=== PATIENT | male | born 1960 | race Hispanic/Latino ===

== ENCOUNTER 2017-10-13 19:04 | Inpatient (IN) | payer BC ==
[2017-10-13 19:57] LABS: Basophils % (Auto) 0.5 % (0.0-1.8); Eosinophils % (Auto) 0.2 % (0.0-4.3); Mean Corpuscular HGB Conc 33 % (32-34); Mean Corpuscular Hemoglobin 32 pg (28-32); Mean Corpuscular Volume 96 fl (84-94); Red Blood Count 4.99 M/mm3 (3.65-5.03); Red Cell Distribution Width 13.8 % (13.2-15.2); White Blood Count 12.8 K/mm3 (4.5-11.0)
[2017-10-13 20:27] LABS: Alanine Aminotransferase 46 units/L (7-56); Alkaline Phosphatase 74 units/L (35-129); Anion Gap 24 mmol/L; BUN/Creatinine Ratio 19; Blood Urea Nitrogen 15 mg/dL (9-20); Calcium 8.9 mg/dL (8.4-10.2); Carbon Dioxide 19 mmol/L (22-30); Chloride 99.9 mmol/L (98-107); Glucose 152 mg/dL (75-100); Lipase 19 units/L (13-60); Sodium 139 mmol/L (137-145)
[2017-10-13 20:30] LABS: Platelet Count 85 K/mm3 (140-440)
[2017-10-13 21:12] LABS: Albumin/Globulin Ratio 1.3 %
[2017-10-13 21:40] LABS: Bilirubin,Urine NEG (Negative); Blood,Urine NEG (Negative); Ketones,Urine TR mg/dL (Negative); Leukocyte Esterase,Urine NEG (Negative); Mucus,Urine 2+ /HPF; Nitrite,Urine NEG (Negative); Protein,Urine <15 mg/dL mg/dL (Negative)
[2017-10-14] MEDS ORDERED: TORADOL IV ONE (08:17)
[2017-10-14] MEDS ORDERED: ZOFRAN IV ONE (08:17)
[2017-10-14] MEDS ORDERED: NACL 0.9% 1000 ML 1,000 ML IV ONE (08:17)
--- NOTE | 2017-10-14 10:44 | Cat Scan Report ---
FINAL REPORT EXAM: CT ABDOMEN PELVIS W CON HISTORY: llq pain, hx of diverculitis with resection TECHNIQUE: CT abdomen and pelvis performed. Images extend from diaphragm to pubic symphysis. Images were obtained after the administration of IV contrast. No oral contrast was administered. Coronal and sagittal reformatted images were obtained. PRIORS: None. FINDINGS: There is some dependent atelectasis at the lung bases. There is elevation of the left hemidiaphragm. There is fatty infiltration of the liver. The visualized liver, spleen, pancreas, adrenal glands and kidneys demonstrate no significant abnormalities. There is no abdominal aortic aneurysm. There is some wall thickening involving mid small bowel loops which is worrisome for enteritis. Bowel loops proximal to this are fluid containing and mildly dilated. This could reflect associated obstruction versus ileus. The appendix is normal. There is diverticulosis throughout the colon. There is no acute diverticulitis seen. There is no free intraperitoneal air. There are no abnormal fluid collections seen. The bladder is unremarkable. There is no abnormal pelvic mass or fluid collections seen. IMPRESSION: Findings are concerning for enteritis involving mid bowel. Fluid containing mildly dilated proximal loops could reflect associated ileus or obstruction. Diverticulosis. No acute diverticulitis seen. Fatty liver.
--- NOTE | 2017-10-14 11:53 | Emergency Department Report ---
ED Abdominal Pain HPI - General Chief Complaint: Abdominal Pain Stated Complaint: CHEST PAIN Time Seen by Provider: 10/14/17 08:07 Source: patient Mode of arrival: Ambulatory Limitations: No Limitations - History of Present Illness Initial Comments: 57-year-old male with a past medical history hypertension and diverticulitis with postsurgical with partial intestine removal 3 years ago presents to the hospital complains of lower quadrant abdominal pain 3 days ago. Pain is intermittent and starts in the left lower quadrant and radiates up to the chest. Patient having a lot of flatus and belching without improvement. Pain is worse with palpation. Decreased by mouth intake reported and patient has not eaten in several days. Patient saw PMD Dr. Cleveland who prescribed Flagyl, promethazine, [place], and Cipro. Patient took first dose of medications yesterday. Patient continued to have pain so came to the ED for CT scan to rule out return of diverticulitis. Patient denies known fever. Last vomiting episode was 2 days ago. Patient states has some some similar symptoms in the past with intestinal blockage to 3 years ago. One episode of loose stools yesterday. GI doctor: Dr. Kaplan Severity scale (0 -10): 4 - Related Data Allergies Allergy/AdvReac Type Severity Reaction Status Date / Time No Known Allergies Allergy Verified 10/13/17 19:21 ED Review of Systems ROS: Stated complaint: CHEST PAIN Other details as noted in HPI Comment: All other systems reviewed and negative Other: Constitutional: No fevers chills or weight loss Eyes: No eye pain visual changes or discharge ENT: No ear pain or throat pain Neck: Denies pain Respiratory: Denies cough wheezing shortness of breath Cardiovascular: Denies chest pain, palpitations, syncope GI: As per HPI : Denies dysuria Musculoskeletal: Denies back pain Skin: Denies rash, lesions, erythema Neurologic: Denies headache, numbness, weakness Psychiatric: Denies suicidal ideation, hallucinations ED Past Medical Hx - Past Medical History Previous Medical History?: Yes Hx Hypertension: Yes Additional medical history: diverticulitis - Surgical History Past Surgical History?: Yes - Social History Smoking Status: Former Smoker Substance Use Type: None ED Physical Exam - General Limitations: No Limitations - Other Other exam information: General: No limitations, patient is alert in no acute distress Head exam: Atraumatic, normocephalic Eyes exam: Normal appearance ENT: Moist mucous membrane, normal oropharynx Neck exam: Normal inspection, full range of motion, no meningismus nontender Respiratory exam: Clear to auscultation bilateral, no wheezes, rales, crackles Cardiovascular: Normal rate and rhythm, normal heart sounds Abdomen: Soft, nondistended, left lower quadrant tenderness, with normal bowel sounds, no rebound, or guarding Extremity: Full range of motion normal inspection no deformity Back: Normal Inspection, full range of motion, no tenderness Neurologic: Alert, oriented x3, cranial nerves intact, no motor or sensory deficit Psychiatric: normal affect, normal mood Skin: Warm, dry, intact ED Course Vital Signs 10/13/17 10/14/17 10/14/17 19:22 04:06 07:26 Temperature 97.8 F 98.6 F Pulse Rate 107 H 88 86 Respiratory 16 20 19 Rate Blood Pressure 124/79 124/79 Blood Pressure 116/92 [Right] O2 Sat by Pulse 95 95 94 Oximetry 10/14/17 10/14/17 10/14/17 08:50 10:35 10:39 Temperature 98.1 F Pulse Rate 84 Respiratory 20 20 20 Rate Blood Pressure Blood Pressure 125/68 [Right] O2 Sat by Pulse 95 95 Oximetry - Reevaluation(s) Reevaluation #1: 10/14/17 12:14 Patient received Toradol, normocephaly, and Zofran with improvement in symptoms. ED Medical Decision Making - Lab Data Result diagrams: 10/13/17 19:37 10/13/17 19:37 Lab Results 10/13/17 10/13/17 10/13/17 Range/Units 19:37 19:37 21:21 WBC 12.8 H (4.5-11.0) K/mm3 RBC 4.99 (3.65-5.03) M/mm3 Hgb 16.0 H (11.8-15.2) gm/dl Hct 48.0 H (35.5-45.6) % MCV 96 H (84-94) fl MCH 32 (28-32) pg MCHC 33 (32-34) % RDW 13.8 (13.2-15.2) % Plt Count 85 L (140-440) K/mm3 Lymph % (Auto) 14.9 (13.4-35.0) % [place] % (Auto) 7.5 H (0.0-7.3) % Eos % (Auto) 0.2 (0.0-4.3) % Baso % (Auto) 0.5 (0.0-1.8) % Lymph # 1.9 (1.2-5.4) K/mm3 [place] # 1.0 H (0.0-0.8) K/mm3 Eos # 0.0 (0.0-0.4) K/mm3 Baso # 0.1 (0.0-0.1) K/mm3 Seg Neutrophils % 76.9 H (40.0-70.0) % Seg Neutrophils # 9.8 H (1.8-7.7) K/mm3 Sodium 139 (137-145) mmol/L Potassium 4.0 (3.6-5.0) mmol/L Chloride 99.9 (98-107) mmol/L Carbon Dioxide 19 L (22-30) mmol/L Anion Gap 24 mmol/L BUN 15 (9-20) mg/dL Creatinine 0.8 (0.8-1.5) mg/dL Estimated GFR > 60 ml/min BUN/Creatinine Ratio 19 % Glucose 152 H (75-100) mg/dL Calcium 8.9 (8.4-10.2) mg/dL Total Bilirubin 1.20 (0.1-1.2) mg/dL AST 35 (5-40) units/L ALT 46 (7-56) units/L Alkaline Phosphatase 74 (35-129) units/L Troponin T (0.00-0.029) ng/mL Total Protein 7.0 (6.3-8.2) g/dL Albumin 4.0 (3.9-5) g/dL Albumin/Globulin Ratio 1.3 % Lipase 19 (13-60) units/L Urine Color Sharri (Yellow) Urine Turbidity Clear (Clear) Urine pH 5.0 (5.0-7.0) Ur Specific [place] 1.027 (1.003-1.030) Urine Protein <15 mg/dl (Negative) mg/dL Urine Glucose (UA) Neg (Negative) mg/dL Urine Ketones Tr (Negative) mg/dL Urine Blood Neg (Negative) Urine Nitrite Neg (Negative) Urine Bilirubin Neg (Negative) Urine Urobilinogen 2.0 (<2.0) mg/dL Ur Leukocyte Esterase Neg (Negative) Urine WBC (Auto) 1.0 (0.0-6.0) /HPF Urine RBC (Auto) 2.0 (0.0-6.0) /HPF Urine Mucus 2+ /HPF 10/14/17 Range/Units 08:26 WBC (4.5-11.0) K/mm3 RBC (3.65-5.03) M/mm3 Hgb (11.8-15.2) gm/dl Hct (35.5-45.6) % MCV (84-94) fl MCH (28-32) pg MCHC (32-34) % RDW (13.2-15.2) % Plt Count (140-440) K/mm3 Lymph % (Auto) (13.4-35.0) % [place] % (Auto) (0.0-7.3) % Eos % (Auto) (0.0-4.3) % Baso % (Auto) (0.0-1.8) % Lymph # (1.2-5.4) K/mm3 [place] # (0.0-0.8) K/mm3 Eos # (0.0-0.4) K/mm3 Baso # (0.0-0.1) K/mm3 Seg Neutrophils % (40.0-70.0) % Seg Neutrophils # (1.8-7.7) K/mm3 Sodium (137-145) mmol/L Potassium (3.6-5.0) mmol/L Chloride (98-107) mmol/L Carbon Dioxide (22-30) mmol/L Anion Gap mmol/L BUN (9-20) mg/dL Creatinine (0.8-1.5) mg/dL Estimated GFR ml/min BUN/Creatinine Ratio % Glucose (75-100) mg/dL Calcium (8.4-10.2) mg/dL Total Bilirubin (0.1-1.2) mg/dL AST (5-40) units/L ALT (7-56) units/L Alkaline Phosphatase (35-129) units/L Troponin T < 0.010 (0.00-0.029) ng/mL Total Protein (6.3-8.2) g/dL Albumin (3.9-5) g/dL Albumin/Globulin Ratio % Lipase (13-60) units/L Urine Color (Yellow) Urine Turbidity (Clear) Urine pH (5.0-7.0) Ur Specific [place] (1.003-1.030) Urine Protein (Negative) mg/dL Urine Glucose (UA) (Negative) mg/dL Urine Ketones (Negative) mg/dL Urine Blood (Negative) Urine Nitrite (Negative) Urine Bilirubin (Negative) Urine Urobilinogen (<2.0) mg/dL Ur Leukocyte Esterase (Negative) Urine WBC (Auto) (0.0-6.0) /HPF Urine RBC (Auto) (0.0-6.0) /HPF Urine Mucus /HPF - EKG Data -: EKG Interpreted by Me (nsr ) EKG shows normal: sinus rhythm, axis (48), QRS complexes (90), ST-T waves (no stemi) Rate: tachycardia (102) - EKG Data When compared to previous EKG there are: previous EKG unavailable - Radiology Data Radiology results: report reviewed ct abd pelvis w/IV contrast: findings concerning for enteritis involving mid bowel pair fluid containing mildly dilated proximal loops could reflect associated ileus or obstruction. Diverticulosis without acute diverticulitis. - Medical Decision Making Plans admit patient to hospital for further observation given ileus and by mouth intolerance. Patient also has thrombocytopenia without previous value for comparison. Surgeon religion professor Dr. Turner was consulted and will see patient. Patient continues to have flatus therefore a likely complete small bowel obstruction. Patient states with previous bowel obstruction he could not pass gas. Critical Care Time: No Critical care attestation.: If time is entered above; I have spent that time in minutes in the direct care of this critically ill patient, excluding procedure time. ED Disposition Clinical Impression: LLQ pain, Ileus, Thrombocytopenia, Dehydration Disposition: -09 OP ADMIT IP TO THIS HOSP Is pt being admited?: Yes Condition: Stable Time of Disposition: 12:07 (Dr Herrera/hosp)
--- NOTE | 2017-10-14 13:53 | History and Physical Report ---
History of Present Illness History of present illness: 57 YO Male with HTN, Diverticulitis presents to ED for evaluation. Pt states that he has experienced abdominal pain for the past 3 days. Pain is 4-6/10, intermittent, worse with palpation, starts in the left lower quadrant and radiates up to the epigastric region. Patient acknowledges flatus and belching without improvement in symptoms. Pt seen by PCP and give oral antibiotics and pain medication which has not improved symptoms. Pt denies fever, chills, CP, Palpitation, Syncope, BRBPR, productive cough, ingestion of food/water from new or different sources, skin rash, or recent ill contacts. Pt seen and evaluated in ED and underwent CT abdomen/pelvis which revealed colitis, Patient also found to have evidence of sepsis. Pt initiated on sepsis protocol. Past History Past Medical History: hypertension, other (Divereticulitis) Past Surgical History: bowel surgery Social history: Family history: hypertension Medications and Allergies Allergies Allergy/AdvReac Type Severity Reaction Status Date / Time No Known Allergies Allergy Verified 10/13/17 19:21 Home Medications Medication Instructions Recorded Confirmed Last Taken Type Ciprofloxacin HCl [Cipro] 500 mg PO BID 10/14/17 10/14/17 10/13/17 History Gabapentin [Neurontin] 300 mg PO QDAY 10/14/17 10/14/17 Unknown History HYDROcodone/APAP 7.5-325 [[place] 1 each PO TID PRN 10/14/17 10/14/17 10/13/17 History 7.5/325] Lisinopril [Prinivil] 5 mg PO QDAY 10/14/17 10/14/17 Unknown History Pantoprazole [Protonix] 40 mg PO QDAY 10/14/17 10/14/17 Unknown History Promethazine [Phenergan TAB] 25 mg PO Q8HR PRN 10/14/17 10/14/17 10/13/17 History Tamsulosin [Flomax] 0.4 mg PO QDAY 10/14/17 10/14/17 Unknown History metroNIDAZOLE [Metronidazole] 500 mg PO BID 10/14/17 10/14/17 10/13/17 History Review of Systems Constitutional: no weight loss, no weight gain, no fever, no chills Ears, nose, mouth and throat: no ear pain, no ear discharge, no tinnitis, no decreased hearing, no nose pain, no nasal congestion Cardiovascular: no chest pain, no orthopnea, no palpitations, no rapid/ irregular heart beat, no edema Respiratory: no cough, no cough with sputum, no excessive sputum, no hemoptysis , no shortness of breath Gastrointestinal: abdominal pain Genitourinary Male: no dysuria, no hematuria, no flank pain, no discharge, no urinary frequency Rectal: no pain, no incontinence, no bleeding Musculoskeletal: no neck stiffness, no neck pain, no shooting arm pain, no arm numbness/tingling Integumentary: no rash, no pruritis, no redness, no sores, no wounds Neurological: no head injury, no transient paralysis, no paralysis, no weakness , no parathesias Psychiatric: no anxiety, no memory loss, no change in sleep habits, no sleep disturbances, no insomnia, no hypersomnia, no change in appetite Endocrine: no cold intolerance, no heat intolerance, no polyphagia, no excessive thirst, no polydipsia Hematologic/Lymphatic: no easy bruising, no easy bleeding Allergic/Immunologic: no urticaria, no allergic rhinitis, no wheezing Exam - Constitutional Vitals: Temp Pulse Resp BP Pulse Ox 98.1 F 84 20 125/68 95 10/14/17 10:35 10/14/17 10:35 10/14/17 10:39 10/14/17 10:35 10/14/17 10:39 General appearance: Present: mild distress - EENT Eyes: Present: PERRL ENT: hearing intact, clear oral mucosa - Neck Neck: Present: supple, normal ROM - Respiratory Respiratory effort: normal Respiratory: bilateral: CTA - Cardiovascular Heart Sounds: Present: S1 & S2. Absent: rub, click - Extremities Extremities: pulses symmetrical, No edema Peripheral Pulses: within normal limits - Abdominal General gastrointestinal: Present: soft, tender, non-distended, normal bowel sounds Localized gastrointestinal: tender: LLQ, guarding: LLQ Male genitourinary: Present: normal - Integumentary Integumentary: Present: clear, warm, dry - Musculoskeletal Musculoskeletal: gait normal, strength equal bilaterally - Psychiatric Psychiatric: appropriate mood/affect, intact judgment & insight - Neurologic Neurologic: CNII-XII intact, moves all extremities Results - Labs CBC & Chem 7: 10/13/17 19:37 10/13/17 19:37 Labs: Abnormal lab results 10/13/17 10/13/17 Range/Units 19:37 19:37 WBC 12.8 H (4.5-11.0) K/mm3 Hgb 16.0 H (11.8-15.2) gm/dl Hct 48.0 H (35.5-45.6) % MCV 96 H (84-94) fl Plt Count 85 L (140-440) K/mm3 [place] % (Auto) 7.5 H (0.0-7.3) % [place] # 1.0 H (0.0-0.8) K/mm3 Seg Neutrophils % 76.9 H (40.0-70.0) % Seg Neutrophils # 9.8 H (1.8-7.7) K/mm3 Carbon Dioxide 19 L (22-30) mmol/L Glucose 152 H (75-100) mg/dL Assessment and Plan - Patient Problems (1) Sepsis Current Visit: Yes Status: Acute Qualifiers: Sepsis type: sepsis due to unspecified organism Qualified Code(s): A41.9 - Sepsis, unspecified organism Plan to address problem: IV abx, IVF, monitor UOP q shift, serial lactic acid level, blood cultures, repeat cbc. (2) Colitis Current Visit: Yes Status: Acute Plan to address problem: CT Abdomen/Pelvis, IV abx, serial abdominal exam, Surgery consulted, serial abdominal exam. , GI consulted as per surgery request (3) HTN (hypertension) Current Visit: Yes Status: Acute Plan to address problem: monitor bp q shift, IV hydralazine for systolic above 155. (4) DVT prophylaxis Current Visit: Yes Status: Acute
[2017-10-14] MEDS ORDERED: PROVENTIL IH PRN (13:56)
[2017-10-14] MEDS ORDERED: MILK OF MAGNESIA PO PRN (13:56)
[2017-10-14] MEDS ORDERED: DULCOLAX PR PRN (13:56)
[2017-10-14] MEDS ORDERED: ZOFRAN IV PRN (13:56)
[2017-10-14] MEDS ORDERED: TYLENOL PO PRN (13:56)
[2017-10-14] MEDS ORDERED: MORPHINE IV PRN (13:56)
[2017-10-14] MEDS ORDERED: PHENERGAN PO PRN (13:59)
[2017-10-14] MEDS ORDERED: NORCO 7.5/325 PO PRN (13:59)
[2017-10-14] MEDS ORDERED: D5/0.45NS 1,000 ML IV SCH (14:00)
[2017-10-14] MEDS ORDERED: FLAGYL PO SCH (15:30)
[2017-10-14] MEDS ORDERED: VANCOMYCIN VIAL IV ONE (17:00)
[2017-10-14] MEDS ORDERED: VANCOMYCIN PHARMACY TO DOSE IV SCH (17:00)
[2017-10-14] MEDS: NACL 0.9% 1000 ML IV ONE ×2 (17:43→19:38)
--- NOTE | 2017-10-14 18:25 | Gastroenterology Consultation ---
History of Present Illness - Reason for Consult Consult date: 10/14/17 Abdominal Pain Requesting physician: JOAO SEARS - History of Present Illness The patient is a 57 yo male referred by his PCP to the ER for worsening abdominal pain. He does have a hx of diverticulitis with sigmoid resection (3 years ago, [facility]) but this pain was more diffuse and associated with an abdominal distention, nausea, and obstipation. He denies F/C but had an elevated WBC on admit. He was started on abx by his PCP yesterday, but admits he only took 1 dose of each (cipro and flagyl). He has no CP or SOB. He has no other abdominal surgeries. He has no hx of GI obstruction from adhesions. Today in the ER, he is passing copious flatus, says his abdomen is markedly better/less pain, and is tolerating clear liquids without emesis. There is no blood in the stools. Past History Past Medical History: hypertension, other (Divereticulitis) Past Surgical History: bowel surgery (Diverticulitis/sigmoid resection at [facility] 2013) Social history: Family history: hypertension Medications and Allergies Allergies Allergy/AdvReac Type Severity Reaction Status Date / Time No Known Allergies Allergy Verified 10/13/17 19:21 Home Medications Medication Instructions Recorded Confirmed Last Taken Type Ciprofloxacin HCl [Cipro] 500 mg PO BID 10/14/17 10/14/17 10/13/17 History Gabapentin [Neurontin] 300 mg PO QDAY 10/14/17 10/14/17 Unknown History HYDROcodone/APAP 7.5-325 [[place] 1 each PO TID PRN 10/14/17 10/14/17 10/13/17 History 7.5/325] Lisinopril [Prinivil] 5 mg PO QDAY 10/14/17 10/14/17 Unknown History Pantoprazole [Protonix] 40 mg PO QDAY 10/14/17 10/14/17 Unknown History Promethazine [Phenergan TAB] 25 mg PO Q8HR PRN 10/14/17 10/14/17 10/13/17 History Tamsulosin [Flomax] 0.4 mg PO QDAY 10/14/17 10/14/17 Unknown History metroNIDAZOLE [Metronidazole] 500 mg PO BID 10/14/17 10/14/17 10/13/17 History Active Meds: Active Medications Acetaminophen (Tylenol) 650 mg PO Q4H PRN PRN Reason: Pain MILD(1-3)/Fever >100.5/[place] Acetaminophen/Hydrocodone Bitart ([place] 7.5/325) 1 each PO TID PRN PRN Reason: Pain Albuterol (Proventil) 2.5 mg IH Q4HRT PRN PRN Reason: Shortness Of Breath Bisacodyl (Dulcolax) 10 mg [place] QDAY PRN PRN Reason: Constipation unrelieved by MOM Famotidine (Pepcid) 20 mg PO BID [facility] Gabapentin (Neurontin) 300 mg PO QDAY [facility] Dextrose/Sodium Chloride (D5/0.45ns) 1,000 mls @ 42 mls/hr IV DIRECT PRICILLA Metronidazole (Flagyl 500 Mg/100 Ml) 500 mg in 100 mls @ 100 mls/hr IV Q8HR [facility] Piperacillin Sod/Tazobactam Sod (Zosyn/Ns 4.5gm/100ml) 4.5 gm in 100 mls @ 200 mls/hr IV Q8HR PRICILLA PRN Reason: Protocol Lisinopril (Zestril) 5 mg PO QDAY [facility] Magnesium Hydroxide (Milk Of Magnesia) 30 ml PO Q4H PRN PRN Reason: Constipation Metronidazole (Flagyl) 500 mg PO BID [facility] Last Admin: 10/14/17 15:03 Dose: 500 mg Morphine Sulfate (Morphine) 2 mg IV Q4H PRN PRN Reason: Pain, Moderate (4-6) Ondansetron HCl (Zofran) 4 mg IV Q8H PRN PRN Reason: N/V unrelieved by Reglan Promethazine HCl (Phenergan) 25 mg PO Q8HR PRN PRN Reason: Nausea Tamsulosin HCl (Flomax) 0.4 mg PO QDAY [facility] Vancomycin HCl (Vancomycin Pharmacy To Dose) 1 each IV PKCONSULT PRICILLA PRN Reason: Protocol Vancomycin HCl (Vancomycin Vial) 2,000 mg 20 mg/kg (2000 mg) IV ONCE ONE PRN Reason: Protocol Stop: 10/14/17 17:01 Review of Systems - Review of Systems All systems: negative (as noted in the HPI) Exam - Constitutional Vital Signs: Temp Pulse Resp BP Pulse Ox 98.1 F 84 20 125/68 95 10/14/17 10:35 10/14/17 10:35 10/14/17 10:39 10/14/17 10:35 10/14/17 10:39 General appearance: no acute distress - EENT Eyes: PERRL, EOM intact ENT: hearing intact, clear oral mucosa, dentition normal, no thrush - Neck Neck: supple, normal ROM - Respiratory Respiratory effort: normal Respiratory: bilateral: CTA - Cardiovascular Rhythm: regular Heart Sounds: Present: S1 & S2 Extremities: no ischemia, No edema - Gastrointestinal General gastrointestinal: Present: soft, non-tender, distended (Very mild with normal BS and no guarding) - Integumentary Integumentary: Present: clear, warm, dry - Neurologic Neurological: alert and oriented x3 - Labs CBC & Chem 7: 10/13/17 19:37 10/13/17 19:37 Lab Results: Laboratory Results - last 24 hr 10/13/17 10/13/17 10/13/17 19:37 19:37 21:21 WBC 12.8 H RBC 4.99 Hgb 16.0 H Hct 48.0 H MCV 96 H MCH 32 MCHC 33 RDW 13.8 Plt Count 85 L Lymph % (Auto) 14.9 [place] % (Auto) 7.5 H Eos % (Auto) 0.2 Baso % (Auto) 0.5 Lymph # 1.9 [place] # 1.0 H Eos # 0.0 Baso # 0.1 Seg Neutrophils % 76.9 H Seg Neutrophils # 9.8 H Sodium 139 Potassium 4.0 Chloride 99.9 Carbon Dioxide 19 L Anion Gap 24 BUN 15 Creatinine 0.8 Estimated GFR > 60 BUN/Creatinine Ratio 19 Glucose 152 H Calcium 8.9 Total Bilirubin 1.20 AST 35 ALT 46 Alkaline Phosphatase 74 Troponin T Total Protein 7.0 Albumin 4.0 Albumin/Globulin Ratio 1.3 Lipase 19 Urine Color Sharri Urine Turbidity Clear Urine pH 5.0 Ur Specific [place] 1.027 Urine Protein <15 mg/dl Urine Glucose (UA) Neg Urine Ketones Tr Urine Blood Neg Urine Nitrite Neg Urine Bilirubin Neg Urine Urobilinogen 2.0 Ur Leukocyte Esterase Neg Urine WBC (Auto) 1.0 Urine RBC (Auto) 2.0 Urine Mucus 2+ 10/14/17 08:26 WBC RBC Hgb Hct MCV MCH MCHC RDW Plt Count Lymph % (Auto) [place] % (Auto) Eos % (Auto) Baso % (Auto) Lymph # [place] # Eos # Baso # Seg Neutrophils % Seg Neutrophils # Sodium Potassium Chloride Carbon Dioxide Anion Gap BUN Creatinine Estimated GFR BUN/Creatinine Ratio Glucose Calcium Total Bilirubin AST ALT Alkaline Phosphatase Troponin T < 0.010 Total Protein Albumin Albumin/Globulin Ratio Lipase Urine Color Urine Turbidity Urine pH Ur Specific [place] Urine Protein Urine Glucose (UA) Urine Ketones Urine Blood Urine Nitrite Urine Bilirubin Urine Urobilinogen Ur Leukocyte Esterase Urine WBC (Auto) Urine RBC (Auto) Urine Mucus Assessment and Plan - Patient Problems (1) Abnormal abdominal CT scan Current Visit: Yes Status: Acute Plan to address problem: - Ileus versus partial SBO (resolving clinically). - Most likely dx at this age would be infectious, but could be partial SBO from prior bowel surgery. - Since the patient is clinically much better with abx, I would continue for 5 days (cipro only for small bowel enteritis). - Will advance to full liquids, and OK to d/c tomorrow if continues current clinical improvement.
[2017-10-14] MEDS ORDERED: VANCOMYCIN 1,500 MG in NACL 0.9% 500 ML 500 ML IV SCH (18:50)
[2017-10-14] MEDS ORDERED: NACL 0.9% 1000 ML 1,000 ML ONE (19:35)
[2017-10-14 20:46] LABS: Bilirubin,Urine NEG (Negative); Blood,Urine NEG (Negative); Ketones,Urine 20 mg/dL (Negative); Leukocyte Esterase,Urine NEG (Negative); Mucus,Urine FEW /HPF; Nitrite,Urine NEG (Negative); Protein,Urine <15 mg/dL mg/dL (Negative)
[2017-10-14] MEDS: PEPCID PO SCH (21:32)
[2017-10-14] MEDS ORDERED: FLAGYL 500 MG/100 ML 500 MG/100 ML BAG IV SCH (22:00)
[2017-10-14] MEDS ORDERED: ZOSYN/NS 4.5GM/100ML 4.5 GM/100 ML VIAL IV SCH (22:00)
[2017-10-15] MEDS ORDERED: NACL 0.9% 1000 ML IV ONE (06:00)
--- NOTE | 2017-10-15 06:58 | Consultation ---
HISTORY OF PRESENT ILLNESS: The patient seen in the Emergency Room this morning. He came because of severe pain to the abdomen of about 2 days' duration, nausea, but no vomiting. He gives a history of surgery where he had his right colon removed, also gives a history of a ?small bowel obstruction requiring him to be in the hospital for about 3 days about one year and half ago. He was admitted by Dr. Philip because of the above, he had diverticular disease, but at this point he did not have anything. His abdomen was moderately protuberant and has severe pain. He told me that in the last 1 hour or so, his pain has gone. The patient is hungry. He had no problem with his bowel movements, although they were on the loose ____ side, however. Allergic reactions were denied. MEDICATIONS: None specific. PHYSICAL EXAMINATION: GENERAL: A well preserved, obese white male who is in no distress. He told me the pain has gone now. HEAD AND NECK: Negative. Supple. CHEST: Essentially clear. HEART: Sounds normal. ABDOMEN: Protuberant and soft to me at the present time, no tenderness, no rigidity. EXTREMITIES: Showed no edema. IMPRESSION: Abdominal pain, resolving, the etiology of which is unknown, status post colon resection for diverticular disease. I had a lengthy talk with the patient, I believe we need to have him in as per our clinical applications manager, give him some liquid slowly and IV fluids and then we will go from there. JOB# [id number] BELEN/THOMAS CARROLL
[2017-10-15 09:50] LABS: Hematocrit 39.1 % (35.5-45.6); Hemoglobin 13.7 gm/dl (11.8-15.2); Mean Corpuscular HGB Conc 35 % (32-34); Mean Corpuscular Hemoglobin 33 pg (28-32); Mean Corpuscular Volume 95 fl (84-94); Platelet Count 157 K/mm3 (140-440); Red Blood Count 4.11 M/mm3 (3.65-5.03); Red Cell Distribution Width 13.1 % (13.2-15.2); White Blood Count 5.5 K/mm3 (4.5-11.0)
[2017-10-15] MEDS: PEPCID PO SCH (09:59)
[2017-10-15] MEDS ORDERED: LEVAQUIN 500MG/100ML 500 MG/100 ML BAG IV SCH (10:00)
[2017-10-15] MEDS ORDERED: NEURONTIN PO SCH (10:00)
[2017-10-15] MEDS ORDERED: FLOMAX PO SCH (10:00)
[2017-10-15] MEDS ORDERED: ZESTRIL PO SCH (10:00)
[2017-10-15 10:05] LABS: Anion Gap 17 mmol/L; BUN/Creatinine Ratio 11; Blood Urea Nitrogen 9 mg/dL (9-20); Calcium 8.2 mg/dL (8.4-10.2); Carbon Dioxide 23 mmol/L (22-30); Chloride 102.6 mmol/L (98-107); Glucose 103 mg/dL (75-100); Potassium 3.7 mmol/L (3.6-5.0); Sodium 139 mmol/L (137-145)
[2017-10-15 10:26] LABS: Blastocytes % (Manual) 0 %
[2017-10-15 10:27] LABS: Anisocytosis 1+; Diff Status Complete; Platelet Estimate Consistent w Auto; Polychromasia Rare
[2017-10-15] MEDS ORDERED: CITRATE OF MAGNESIA PO ONE (10:43)
--- NOTE | 2017-10-15 12:18 | Discharge Summary ---
Providers - Providers Date of Admission: 10/14/17 13:56 Date of discharge: 10/15/17 Attending physician: JOAO SEARS MD 10/14/17 12:03 Consult to Physician [CONS] Urgent Consulting Provider: SEPIDEH HELTON Reason For Exam: illeus vs obstruction Place consult to:: SURGERY Notified:: y 10/14/17 16:50 Consult to Physician [CONS] Routine Consulting Provider: MATEO MAS Reason For Exam: colitis Place consult to:: GI Notified:: Y Was contact made?: Yes If yes, spoke with:: A/S RUPA Time called:: 16:50 Primary care physician: WEATHER REPORTER Hospitalization Reason for admission: entritis Condition: Stable Pertinent studies: CT abdomen and pelvis Findings are concerning for enteritis involving the mid bowel. Fluid containing mildly dilated proximal loops could reflect associated ileus or obstruction. Diverticulosis. No acute diverticulitis seen. Hospital course: 57 YO Male with HTN, Diverticulosis presents to ED for evaluation. Pt states that he has experienced abdominal pain for the past 3 days. Pain is 4-6/10, intermittent, worse with palpation, starts in the left lower quadrant and radiates up to the epigastric region. Patient acknowledges flatus and belching without improvement in symptoms. Pt seen by PCP and give oral antibiotics and pain medication which has not improved symptoms. Pt denies fever, chills, CP, Palpitation, Syncope, BRBPR, productive cough, ingestion of food/water from new or different sources, skin rash, or recent ill contacts. Pt seen and evaluated in ED and underwent CT abdomen/pelvis which revealed enteritis. Patient was admitted to the floor, and started with IV antibiotic, GI and surgery consult appreciated. Patient abdominal pain is getting better, patient had bowel movement and discharged home with 5 days of Levaquin. Patient was hemodynamically stable at time of discharge. Medications were reviewed and updated at the time of discharge. Disposition: - TO HOME OR SELFCARE Time spent for discharge: 31 minutes - Discharge Diagnoses (1) Colitis Status: Acute Core Measure Documentation - Palliative Care Palliative Care/ Comfort Measures: Not Applicable - Core Measures Any of the following diagnoses?: none Exam - Physical Exam Narrative exam: Not in cardiopulmonary distress. The patient is obese. Vital signs as documented. Head exam is unremarkable. No scleral icterus . Neck is without jugular venous distension, thyromegaly, or carotid bruits. Lungs are clear to auscultation. Cardiac exam reveals regular rate and Rhythm. First and second heart sounds normal. No murmurs, rubs or gallops. Abdominal exam reveals soft, nontender abdomen. Extremities are nonedematous and both femoral and pedal pulses are normal. BASEBALL SEWER HAND: Alert and oriented 3. No focal weakness. - Constitutional Vitals: Temp Pulse Resp BP Pulse Ox 98.0 F 61 20 118/58 95 10/15/17 07:58 10/15/17 07:58 10/15/17 07:58 10/15/17 07:58 10/15/17 07:58 Plan Activity: no restrictions Weight Bearing Status: Full Weight Bearing Diet: low fat, low cholesterol, low salt, advance as tolerated Follow up with: PRIMARY CARE, [Primary Care Provider] - 3-5 Days MATEO MAS MD [Staff Physician] - 7 Days Prescriptions: HYDROcodone/APAP 7.5-325 [[place] 7.5-325 mg TAB] 1 each PO TID PRN #12 tablet PRN Reason: Pain Levofloxacin [Levaquin TAB] 500 mg PO QDAY #5 tablet
--- NOTE | 2017-10-15 12:24 | Progress Note ---
Subjective Patient Reports: Positive: feels better, flatus, no bowel movement Narrative: Talked to Pt doing fine lots of flatus , No BM , feels the urge however , seen by Dr Cabello home today , I stressed on the Pt the need for colonoscopy , could be done , advised him to pursue it with GI ,and to call me any time , Objective Vital Signs - 12hr 10/15/17 07:58 Temperature 98.0 F Pulse Rate 61 Respiratory 20 Rate Blood Pressure 118/58 O2 Sat by Pulse 95 Oximetry - Labs 10/15/17 09:17 10/15/17 09:23 Diabetes panel 10/15/17 Range/Units 09:23 Sodium 139 (137-145) mmol/L Potassium 3.7 (3.6-5.0) mmol/L Chloride 102.6 (98-107) mmol/L Carbon Dioxide 23 (22-30) mmol/L BUN 9 (9-20) mg/dL Creatinine 0.8 (0.8-1.5) mg/dL Glucose 103 H (75-100) mg/dL Calcium 8.2 L (8.4-10.2) mg/dL Calcium panel 10/15/17 Range/Units 09:23 Calcium 8.2 L (8.4-10.2) mg/dL Pituitary panel 10/15/17 Range/Units 09:23 Sodium 139 (137-145) mmol/L Potassium 3.7 (3.6-5.0) mmol/L Chloride 102.6 (98-107) mmol/L Carbon Dioxide 23 (22-30) mmol/L BUN 9 (9-20) mg/dL Creatinine 0.8 (0.8-1.5) mg/dL Glucose 103 H (75-100) mg/dL Calcium 8.2 L (8.4-10.2) mg/dL Adrenal panel 10/15/17 Range/Units 09:23 Sodium 139 (137-145) mmol/L Potassium 3.7 (3.6-5.0) mmol/L Chloride 102.6 (98-107) mmol/L Carbon Dioxide 23 (22-30) mmol/L BUN 9 (9-20) mg/dL Creatinine 0.8 (0.8-1.5) mg/dL Glucose 103 H (75-100) mg/dL Calcium 8.2 L (8.4-10.2) mg/dL
--- NOTE | 2017-10-15 15:31 | Gastroenterology Progress Note ---
Assessment and Plan - Patient Problems (1) Enteritis Current Visit: Yes Status: Acute Plan to address problem: Resolving enteritis. Stable to go home today GI gary. Office f/u in a few weeks. He has a FH of colon cancer, his mother, and was advised to have an outpatient colonoscopy. (2) Abnormal abdominal CT scan Current Visit: Yes Status: Acute Subjective Date of service: 10/15/17 Principal diagnosis: Enteritis Interval history: The patient reports feeling much better. He is passing stool and flatus. No bleeding. Objective - Constitutional Vitals: Temp Pulse Resp BP Pulse Ox 98.0 F 61 20 118/58 95 10/15/17 07:58 10/15/17 07:58 10/15/17 07:58 10/15/17 07:58 10/15/17 07:58 General appearance: no acute distress - EENT ENT: hearing intact - Neck Neck: supple, normal ROM - Respiratory Respiratory effort: normal Respiratory: bilateral: CTA - Cardiovascular Rhythm: regular - Gastrointestinal General gastrointestinal: Present: soft, non-tender, non-distended, normal bowel sounds, other (obese) - Neurologic Neurological: alert and oriented x3 - Labs CBC & Chem 7: 10/15/17 09:17 10/15/17 09:23 Labs: Laboratory Results - last 24 hr 10/14/17 10/14/17 10/14/17 19:23 20:23 23:14 WBC RBC Hgb Hct MCV MCH MCHC RDW Plt Count Add Manual Diff Total Counted Seg Neuts % (Manual) Band Neutrophils % Lymphocytes % (Manual) Reactive Lymphs % (Man) Monocytes % (Manual) Eosinophils % (Manual) Basophils % (Manual) Metamyelocytes % Myelocytes % Promyelocytes % Blast Cells % Nucleated RBC % Seg Neutrophils # Man Band Neutrophils # Lymphocytes # (Manual) Abs React Lymphs (Man) Monocytes # (Manual) Eosinophils # (Manual) Basophils # (Manual) Metamyelocytes # Myelocytes # Promyelocytes # Blast Cells # WBC Morphology Hypersegmented Neuts Hyposegmented Neuts Hypogranular Neuts Smudge Cells Toxic Granulation Toxic Vacuolation Dohle Bodies Pelger-Huet Anomaly Nazia Rods Platelet Estimate Clumped Platelets Plt Clumps, EDTA Large Platelets Giant Platelets Platelet Satelliting Plt Morphology Comment RBC Morphology Dimorphic RBCs Polychromasia Hypochromasia Poikilocytosis Anisocytosis Microcytosis Macrocytosis Spherocytes Pappenheimer Bodies Sickle Cells Target Cells Tear Drop Cells Ovalocytes Helmet Cells Dhaliwal-Sweeny Bodies [place] Rings Mcgee Cells Bite Cells Crenated Cell Elliptocytes Acanthocytes (Spur) Rouleaux Hemoglobin C Crystals Schistocytes Malaria parasites Chris Bodies Hem Pathologist Commnt Sodium Potassium Chloride Carbon Dioxide Anion Gap BUN Creatinine Estimated GFR BUN/Creatinine Ratio Glucose Lactic Acid 1.40 0.90 Calcium Urine Color Yellow Urine Turbidity Clear Urine pH 5.0 Ur Specific [place] 1.021 Urine Protein <15 mg/dl Urine Glucose (UA) Neg Urine Ketones 20 Urine Blood Neg Urine Nitrite Neg Urine Bilirubin Neg Urine Urobilinogen 4.0 Ur Leukocyte Esterase Neg Urine WBC (Auto) 1.0 Urine RBC (Auto) 2.0 Urine Mucus Few 10/15/17 10/15/17 09:17 09:23 WBC 5.5 RBC 4.11 Hgb 13.7 Hct 39.1 D MCV 95 H MCH 33 H MCHC 35 H RDW 13.1 L Plt Count 157 Add Manual Diff Complete Total Counted 100 Seg Neuts % (Manual) 53.0 Band Neutrophils % 4.0 Lymphocytes % (Manual) 29.0 Reactive Lymphs % (Man) 0 Monocytes % (Manual) 11.0 H Eosinophils % (Manual) 2.0 Basophils % (Manual) 1.0 Metamyelocytes % 0 Myelocytes % 0 Promyelocytes % 0 Blast Cells % 0 Nucleated RBC % Not Reportable Seg Neutrophils # Man 2.9 Band Neutrophils # 0.2 Lymphocytes # (Manual) 1.6 Abs React Lymphs (Man) 0.0 Monocytes # (Manual) 0.6 Eosinophils # (Manual) 0.1 Basophils # (Manual) 0.1 Metamyelocytes # 0.0 Myelocytes # 0.0 Promyelocytes # 0.0 Blast Cells # 0.0 WBC Morphology Not Reportable Hypersegmented Neuts Not Reportable Hyposegmented Neuts Not Reportable Hypogranular Neuts Not Reportable Smudge Cells Not Reportable Toxic Granulation Not Reportable Toxic Vacuolation Not Reportable Dohle Bodies Not Reportable Pelger-Huet Anomaly Not Reportable Nazia Rods Not Reportable Platelet Estimate Consistent w auto Clumped Platelets Not Reportable Plt Clumps, EDTA Not Reportable Large Platelets Not Reportable Giant Platelets Not Reportable Platelet Satelliting Not Reportable Plt Morphology Comment Not Reportable RBC Morphology Not Reportable Dimorphic RBCs Not Reportable Polychromasia Rare Hypochromasia Not Reportable Poikilocytosis Not Reportable Anisocytosis 1+ Microcytosis Not Reportable Macrocytosis Not Reportable Spherocytes Not Reportable Pappenheimer Bodies Not Reportable Sickle Cells Not Reportable Target Cells Not Reportable Tear Drop Cells Not Reportable Ovalocytes Not Reportable Helmet Cells Not Reportable Dhaliwal-Sweeny Bodies Not Reportable [place] Rings Not Reportable Mcgee Cells Not Reportable Bite Cells Not Reportable Crenated Cell Not Reportable Elliptocytes Not Reportable Acanthocytes (Spur) Not Reportable Rouleaux Not Reportable Hemoglobin C Crystals Not Reportable Schistocytes Not Reportable Malaria parasites Not Reportable Chris Bodies Not Reportable Hem Pathologist Commnt No Sodium 139 Potassium 3.7 Chloride 102.6 Carbon Dioxide 23 Anion Gap 17 BUN 9 Creatinine 0.8 Estimated GFR > 60 BUN/Creatinine Ratio 11 Glucose 103 H Lactic Acid Calcium 8.2 L Urine Color Urine Turbidity Urine pH Ur Specific [place] Urine Protein Urine Glucose (UA) Urine Ketones Urine Blood Urine Nitrite Urine Bilirubin Urine Urobilinogen Ur Leukocyte Esterase Urine WBC (Auto) Urine RBC (Auto) Urine Mucus
[2017-10-15 16:38] VITALS: BP 128/77
== END 2017-10-15 18:08 | disposition home or self-care (01) | DRG 872 ==
LOC: ED 19:04 → 3A 10-14 13:56
PROVIDERS: ADMIT Internal Medicine; ATTEND Internal Medicine
DX: A41.9 Sepsis, unspecified organism (principal); K56.7 Ileus, unspecified; K52.9 Noninfective gastroenteritis and colitis, unspecified; K57.90 Diverticulosis of intestine, part unspecified, without perforation or abscess without bleeding; I10 Essential (primary) hypertension; D69.6 Thrombocytopenia, unspecified; E86.0 Dehydration; Z82.49 Family history of ischemic heart disease and other diseases of the circulatory system; Z79.899 Other long term (current) drug therapy; Z80.8 Family history of malignant neoplasm of other organs or systems
CPT/HCPCS: 36415; 74177; 80048; 80053; 81001; 82140; 83690; 84484; 85007; 85025; 87040; 93005; 93010; 96361; 96374; 96375; J1885; J1956; J2405; J2543; J3370; J7030; J7040; Q9967